=== PATIENT | male | born 1955 | race Caucasian/White ===

== ENCOUNTER → 2016-09-08 | Outpatient (CLI) | payer OTHER | LOC: MW.CHFP 10:15 | PROVIDERS: ATTEND Emergency Medicine | DX: Z12.5 Encounter for screening for malignant neoplasm of prostate (principal); E61.1 Iron deficiency | CPT/HCPCS: 36415; 82728; 83550; 85027; G0103 ==

== ENCOUNTER 2018-07-27 20:41 | Emergency (ER) | payer OTHER ==
[2018-07-27] MEDS ORDERED: methylPREDNISolone Sodium Succinate 125 MG/2 ML SDV IM ONE (20:55)
[2018-07-27] MEDS ORDERED: diphenhydrAMINE 50 MG/ML SDV IM ONE (20:56)
--- NOTE | 2018-07-27 21:01 | EDM.PDOC ---
ED HPI GENERAL MEDICAL PROBLEM - General Chief Complaint: General Stated Complaint: SWOLLEN FACE Time Seen by Provider: 07/27/18 20:54 - History of Present Illness INITIAL COMMENTS - FREE TEXT/NARRATIVE: HISTORY AND PHYSICAL: History of present illness: Patient is 62-year-old white male presented concern of rash erythema and swelling of his face and neck is somewhat pruritic he denies any tongue or lip swelling denies shortness of breath nausea vomiting fever chills he does not recall any particular allergen or contact that is new. Patient is a smoker he denies history of cancer he states that this did occur somewhat abruptly over relatively short period of time tonight Review of systems: As per history of present illness and below otherwise all systems reviewed and negative. Past medical history: As per history of present illness and as reviewed below otherwise noncontributory. Surgical history: As per history of present illness and as reviewed below otherwise noncontributory. Social history: No reported history of drug or alcohol abuse. Family history: As per history of present illness and as reviewed below otherwise noncontributory. Physical exam: HEENT: Atraumatic, normocephalic, pupils reactive, negative for conjunctival pallor or scleral icterus, mucous membranes moist, throat clear, neck supple, nontender, trachea midline. Lungs: Clear to auscultation, breath sounds equal bilaterally, chest nontender. Heart: S1S2, regular, negative for clicks, rubs, or JVD. Abdomen: Soft, nondistended, nontender. Negative for masses or hepatosplenomegaly. Negative for costovertebral tenderness. Pelvis: Stable nontender. Genitourinary: Deferred. Rectal: Deferred. Extremities: Atraumatic, negative for cords or calf pain. Neurovascular unremarkable. Neuro: Awake, alert, oriented. Cranial nerves II through XII unremarkable. Cerebellum unremarkable. Motor and sensory unremarkable throughout. Exam nonfocal. Rash: Patient has erythematous rash of his face and neck with lid edema Diagnostics: Chest x-ray CBC CMP CT chest Therapeutics: Solu-Medrol 125 IM Benadryl 50 IM Impression: #1 head and neck plethora rule out superior vena cava syndrome Definitive disposition and diagnosis as appropriate pending reevaluation and review of above. - Related Data Allergies Allergy/AdvReac Type Severity Reaction Status Date / Time No Known Allergies Allergy Verified 07/27/18 20:55 Home Meds: Home Meds Tiotropium [Spiriva Handihaler] 1 cap INH DAILY 07/27/18 [History] ED ROS GENERAL - Review of Systems Review Of Systems: ROS reveals no pertinent complaints other than HPI. ED EXAM, GENERAL - Physical Exam Exam: See Below (dictation) Course - Vital Signs Last Recorded V/S: Last Vital Signs Temp 36.3 C 07/27/18 23:00 Pulse 70 07/27/18 23:00 Resp 14 07/27/18 23:00 BP 150/93 H 07/27/18 23:00 Pulse Ox 95 07/27/18 23:00 - Orders/Labs/Meds Labs: Laboratory Tests 07/27/18 07/27/18 Range/Units 21:20 21:20 WBC 6.46 (4.0-11.0) K/uL RBC 4.80 (4.50-5.90) M/uL Hgb 14.7 (13.0-17.0) g/dL Hct 43.6 (38.0-50.0) % MCV 90.8 (80.0-98.0) fL MCH 30.6 (27.0-32.0) pg MCHC 33.7 (31.0-37.0) g/dL RDW Std Deviation 43.0 (28.0-62.0) fl RDW Coeff of Katelin 13 (11.0-15.0) % Plt Count 267 (150-400) K/uL MPV 10.30 (7.40-12.00) fL Neut % (Auto) 64.1 (48.0-80.0) % Lymph % (Auto) 24.8 (16.0-40.0) % [place] % (Auto) 7.9 (0.0-15.0) % Eos % (Auto) 2.3 (0.0-7.0) % Baso % (Auto) 0.9 (0.0-1.5) % Neut # (Auto) 4.1 (1.4-5.7) K/uL Lymph # (Auto) 1.6 (0.6-2.4) K/uL [place] # (Auto) 0.5 (0.0-0.8) K/uL Eos # (Auto) 0.2 (0.0-0.7) K/uL Baso # (Auto) 0.1 (0.0-0.1) K/uL Nucleated RBC % 0.0 /100WBC Nucleated RBCs # 0 K/uL Sodium 140 (136-148) mmol/L Potassium 4.5 (3.5-5.1) mmol/L Chloride 103 (98-107) mmol/L Carbon Dioxide 26.8 (21.0-32.0) mmol/L BUN 11 (7.0-18.0) mg/dL Creatinine 1.1 (0.8-1.3) mg/dL Est Cr Clr Drug Dosing 68.23 mL/min Estimated GFR (MDRD) > 60.0 ml/min Glucose 87 (74-106) mg/dL Calcium 9.0 (8.5-10.1) mg/dL Total Bilirubin 0.7 (0.2-1.0) mg/dL AST 14 L (15-37) IU/L ALT 15 (14-63) IU/L Alkaline Phosphatase 105 (46-116) U/L Total Protein 7.4 (6.4-8.2) g/dL Albumin 3.6 (3.4-5.0) g/dL Globulin 3.8 (2.6-4.0) g/dL Albumin/Globulin Ratio 0.9 (0.9-1.6) Meds: Medications Discontinued Medications Generic Name Dose Route Start Last Admin Trade Name Freq PRN Reason Stop Dose Admin Diphenhydramine HCl 50 mg 07/27/18 20:56 07/27/18 21:08 Benadryl IM 07/27/18 20:57 50 mg ONETIME ONE Administration Sodium Chloride 1,000 mls @ 999 mls/hr 07/27/18 21:14 07/27/18 21:37 Normal Saline IV 07/27/18 22:14 999 mls/hr STAT ONE Administration Iopamidol 100 ml 07/27/18 21:51 07/27/18 21:58 Isovue-370 (76%) IVPUSH 07/27/18 21:52 100 ml ONETIME ONE Administration Methylprednisolone Sodium Succinate 125 mg 07/27/18 20:55 07/27/18 21:08 Solu-Medrol IM 07/27/18 20:56 125 mg ONETIME ONE Administration Departure - Departure Time of Disposition: 23:05 Disposition: DC/Tfer to Acute Hospital 02 Condition: Good Clinical Impression: Superior vena cava syndrome - Discharge Information Referrals: PCP,None [Primary Care Provider] - Forms: ED Department Discharge
[2018-07-27] MEDS ORDERED: Sodium Chloride 0.9% 1,000 ML IV ONE (21:14)
[2018-07-27 21:41] LABS: CHLORIDE,CL 103 mmol/L (98-107); SODIUM,NA 140 mmol/L (136-148)
--- NOTE | 2018-07-27 21:45 | CR ---
TECHNIQUE: Portable AP chest. INDICATIONS: Chest pain. COMPARISON: 12/02/2013. FINDINGS: New fullness in the right hilum, possibly adenopathy or vascular. IV contrast-enhanced chest CT recommended for further evaluation. Lungs are clear. Dictated by David Acosta MD @ 07/27/2018 9:44:45 PM Dictated by: David Acosta MD @ 07/27/2018 21:44:52 (Electronically Signed)
[2018-07-27] MEDS ORDERED: Iopamidol 755 Mg/ML 100 ML Bottle IVPUSH ONE (21:51)
--- NOTE | 2018-07-27 22:46 | CT ---
TECHNIQUE: IV contrast-enhanced CT chest. 100 mL Isovue-370 injected. INDICATION: Neck and facial swelling, abnormal chest x-ray. COMPARISON: Chest x-ray same day. FINDINGS: There is moderate mediastinal, including right paratracheal, subcarinal, and right para-aortic. Bilateral hilar adenopathy. The largest node is located to the right of the ascending aorta on image 51 of series 201, measuring 4.1 cm. Adenopathy causes marked focal narrowing of the superior vena cava on image 42. This should be the origin of the neck and facial swelling (SVC syndrome). Adenopathy also causes obstruction of the right middle lobe bronchus and collapse of the right middle lobe which was not evident on the chest x-ray. The lung parenchyma is otherwise clear. There is a very tiny right pleural effusion. No axillary adenopathy. There are several low-attenuation lesions identified in the liver. The largest is in the dome in the right hepatic lobe on image 72 of series 201. This measures 3.1 cm. These are compatible with metastases. No suspicious skeletal lesions. IMPRESSION: 1. Mediastinal adenopathy severely narrows the SVC. This would cause the patient`s symptoms of neck and facial swelling (SVC syndrome). 2. Right middle lobe collapse due to obstruction of the right middle lobe bronchus by adenopathy. 3. Multiple liver metastases. 4. The mediastinal adenopathy is likely metastatic. Lymphoma is unlikely due to the obstructive nature of metastases. 5. No primary tumor identified. Dictated by David Acosta MD @ 07/27/2018 10:43:47 PM Dictated by: David Acosta MD @ 07/27/2018 22:43:55 (Electronically Signed)
[2018-07-27] MEDS ORDERED: Sodium Chloride 0.9% 1,000 ML IV SCH (23:45)
== END 2018-07-28 00:30 ==
LOC: MW.ED 20:41
DX: I87.1 Compression of vein (principal); R23.2 Flushing; Z79.899 Other long term (current) drug therapy
CPT/HCPCS: 71045; 71260; 80053; 85025; 93005; 96360; 96361; 96372; 99285; J1200; J2930; J7040; Q9967

== ENCOUNTER 2019-06-23 23:45 | Emergency (ER) | payer OTHER ==
--- NOTE | 2019-06-24 02:09 | EDM.PDOC ---
ED HPI GENERAL MEDICAL PROBLEM - General Chief Complaint: Genitourinary Problem Stated Complaint: TROUBLE URINATING Time Seen by Provider: 06/23/19 23:55 Source of Information: Reports: Patient, Significant Other - History of Present Illness INITIAL COMMENTS - FREE TEXT/NARRATIVE: Patient is a 63-year-old male who presents to the ER because he is having trouble urinating. The patient has a history of liver cancer with metastasis to the lung and the brain. He is currently undergoing chemotherapy. No fevers , no chills, he last urinated around 3 PM today. He feels like he has to urinate but he cannot, he is having a lot of lower abdominal discomfort, with the urge to urinate as discussed above. lower abdomen Pain Score (Numeric/FACES): 8 - Related Data Allergies Allergy/AdvReac Type Severity Reaction Status Date / Time aprepitant [From Emend] Allergy Difficulty Verified 06/24/19 00:05 Breathing fosaprepitant [From Emend] Allergy Difficulty Verified 06/24/19 00:05 Breathing Home Meds: Home Meds Tiotropium [Spiriva Handihaler] 1 cap INH DAILY 07/27/18 [History] Enoxaparin Sodium [Lovenox] 80 mg SQ BID 06/24/19 [History] LORazepam [Ativan] 1 mg PO BEDTIME 06/24/19 [History] Multivit,Calc,Mins/Iron/Folic [[facility] Daily Multiple Tablet] 1 tab PO DAILY [History] bisacodyL [Dulcolax] 5 mg PO DAILY 06/24/19 [History] Past Medical History HEENT History: Reports: Impaired Vision Respiratory History: Reports: COPD, Other (See Below) Other Respiratory History: lung CA Gastrointestinal History: Reports: Diverticulosis, Other (See Below) Other Gastrointestinal History: CA mets to liver Neurological History: Reports: Other (See Below) Other Neuro History: CA mets to Brain - Infectious Disease History Infectious Disease History: Reports: Chicken Pox, Measles, Mumps - Past Surgical History HEENT Surgical History: Reports: Adenoidectomy, Tonsillectomy Respiratory Surgical History: Reports: None GI Surgical History: Reports: Colonoscopy, Colostomy Social & Family History - Family History Family Medical History: Noncontributory - Tobacco Use Smoking Status *Q: Former Smoker Used Tobacco, but Quit: Yes Month/Year Tobacco Last Used: 06/2018 - Caffeine Use Caffeine Use: Reports: Coffee - Recreational Drug Use Recreational Drug Use: No ED ROS GENERAL - Review of Systems Review Of Systems: See Below (Positive for urinary retention, positive for urinary urgency, negative for back pain, negative for fevers, positive for suprapubic tenderness, all other Positives and pertinent negatives as per HPI. All other pertinent systems were reviewed and are negative) ED EXAM, GI/ABD - Physical Exam Exam: See Below Text/Narrative:: Constitutional: Nontoxic, appears chronically ill, appears uncomfortable. HEENT: Normocephalic, Atraumatic, EOMI Neck: Normal range of motion, No stridor, trachea midline Respiratory: No respiratory distress, No tachypnea Cardiovascular: Deferred Gastrointestinal: Diminished soft and nondistended, moderate suprapubic tenderness but no tenderness elsewhere, no rebound, rigidity or guarding Genital / Urinary: Deferred Musculoskeletal: All four extremities present and atraumatic Back: FROM, back pain Integument: Warm, Dry, Color is ethnicity appropriate, No rash. Neuro: Alert, Awake, x3, cranial nerves grossly intact, normal gait, no focal deficits noted Psych: Affect, Judgement, mood normal Course - Vital Signs Text/Narrative:: I performed a bedside ultrasound and the patient only has approximately 225 cc of urine in his bladder; however, this is more than sufficient and he should be able to produce some urine. The patient attempted to urinate and cannot. We then placed a Luna catheter indwelling and as soon as it was placed the patient had complete resolution of his lower abdominal tenderness and he feels much better. The urine itself does not appear infected but it is very concentrated. Urinalysis confirms no infection. The patient continues to feel comfortable with the Luna catheter. I talked to the patient and his in detail as I was surprised that there was only approximately 300 cc of urine in his bladder because usually when people have urinary retention there is a lot more; however, other than this lower than normal volume, the rest of the history is very consistent with classic urinary retention what ever the cause. He will be provided with urology follow-up and he can either follow-up with our urologist or his other physicians (although he has no urologist in [place] ). He was also encouraged to drink a lot more water. Last Recorded V/S: Last Vital Signs Temp 36.9 C 06/23/19 23:51 Pulse 96 06/23/19 23:51 Resp 21 H 06/23/19 23:51 BP 136/92 H 06/23/19 23:51 Pulse Ox 96 06/23/19 23:51 - Orders/Labs/Meds Orders: Active Orders 24 hr Category Date Time Status Insert Urinary Catheter [OM.PC] Q24H Care 06/24/19 01:00 Ordered Urinary Catheter Assessment [RC] ASDIRECTED Care 06/24/19 00:51 Active Labs: Laboratory Tests 06/24/19 Range/Units 00:35 Urine Color YELLOW Urine Appearance CLEAR Urine pH 8.0 (5.0-8.0) Ur Specific [place] 1.020 (1.001-1.035) Urine Protein NEGATIVE (NEGATIVE) mg/dL Urine Glucose (UA) NEGATIVE (NEGATIVE) mg/dL Urine Ketones NEGATIVE (NEGATIVE) mg/dL Urine Occult Blood NEGATIVE (NEGATIVE) Urine Nitrite NEGATIVE (NEGATIVE) Urine Bilirubin NEGATIVE (NEGATIVE) Urine Urobilinogen 0.2 (<2.0) EU/dL Ur Leukocyte Esterase NEGATIVE (NEGATIVE) Urine RBC 0-1 (0-2/HPF) Urine WBC 0-1 (0-5/HPF) Ur Epithelial Cells RARE (NONE-FEW) Urine Bacteria FEW (NEGATIVE) Departure - Departure Time of Disposition: 02:07 Disposition: Home, Self-Care 01 Condition: Good Clinical Impression: Urinary retention - Discharge Information Instructions: Indwelling Urinary Catheter Care, Adult Referrals: Wilfrido Rubi MD [Primary Care Provider] - Mike Mendez MD [Physician] - Forms: ED Department Discharge Sepsis Event Note - Evaluation Sepsis Screening Result: No Definite Risk - Focused Exam Vital Signs: Vital Signs Temp Pulse Resp BP Pulse Ox 06/23/19 23:51 36.9 C 96 21 H 136/92 H 96 Date Exam was Performed: 06/24/19 Time Exam was Performed: 05:12 - My Orders Last 24 Hours: My Active Orders 06/24/19 00:51 Urinary Catheter Assessment [RC] ASDIRECTED 06/24/19 01:00 Insert Urinary Catheter [OM.PC] Q24H - Assessment/Plan Last 24 Hours: My Active Orders 06/24/19 00:51 Urinary Catheter Assessment [RC] ASDIRECTED 02/18/20 01:00 Insert Urinary Catheter [OM.PC] Q24H
== END 2019-06-24 02:27 | disposition home or self-care (01) ==
LOC: MW.ED 23:45
DX: R33.9 Retention of urine, unspecified (principal); J44.9 Chronic obstructive pulmonary disease, unspecified; Z87.891 Personal history of nicotine dependence; Z88.8 Allergy status to other drugs, medicaments and biological substances; Z79.899 Other long term (current) drug therapy
CPT/HCPCS: 51702; 51798; 81001; 99283